=== PATIENT | female | born 1950 | race Caucasian/White ===

== ENCOUNTER 2023-09-03 13:07 | Outpatient (OUT) | payer MEDICARE, SELFPAY ==
--- NOTE | 2023-09-03 | XR_ITS ---
The [address] [address] Patient Name: RONALDO WESTFALL MRN: [id number] date: 07/06/1943 Sex: F Assigned Patient Location: Current Patient Location: Accession/Order Number: [id number] Exam Date: 09/03/2023 13:10 Report Date: 09/04/2023 07:49 At the request of: JENNIFER NASH Procedure: XR foot LT min 3V PROCEDURE: XR foot LT min 3V COMPARISON: None. HISTORY: LEFT FOOT PAIN FINDINGS: BONES:No acute fracture or dislocation. There is mild to moderate hallux valgus. There is varus of the second toe with overlap of the first and second distal phalanges. Mild degenerative changes with joint space narrowing. Mild enthesopathic spurring of the calcaneus SOFT TISSUES:Negative. No visible soft tissue swelling. EFFUSION:None visible. OTHER: Negative. XR/XR foot LT min 3V IMPRESSION: Mild degenerative changes with hallux valgus and varus deformity of the second toe resulting in overlap Electronically authenticated by: EMI PIERRE Date: 09/04/2023 07:49
== END 2023-09-03 13:08 | disposition home or self-care (01) ==
PROVIDERS: Visit Provider Podiatrist Foot & Ankle Surgery
DX: M79.672 Pain in left foot (principal); M20.12 Hallux valgus (acquired), left foot; M20.32 Hallux varus (acquired), left foot
CPT/HCPCS: 73630